=== PATIENT | female | born 1940 | race Two or more races ===

== ENCOUNTER 2017-08-03 14:24 | Inpatient (IN) | payer OTHER ==
[~2017-08-03] VITALS: Ht 180.3 cm; Wt 66.3 kg
[2017-08-03 15:01] LABS: EOSINOPHIL (%) 0.7 % (0-5); EOSINOPHIL COUNT 0.1 K/uL (0-0.3); IMMATURE GRANULOCYTE (%) 0.4 % (0.0-0.7); INSTRUMENT ABS NEUTROPHIL CT 5.1 K/uL; LYMPHOCYTE COUNT 1.4 K/uL (1.0-2.8); MCH 26.3 PG (29.0-34.0); MCHC 31.4 G/DL (30.0-36.0); MCV 83.7 FL (83-99); MEAN PLAT.VOLUME 10.3 uM^3 (9.5-12.4); MONOCYTE (%) 6.6 % (3-12); MONOCYTE COUNT 0.5 K/uL (0-0.8); NEUTROPHIL (%) 72.6 % (45-76); NEUTROPHIL COUNT 5.1 K/uL (1.8-6.4); PLATELET COUNT 166 K/uL (156-360); RBC DIS.WIDTH-CV 13.5 % (11.8-14.6); RBC DIS.WIDTH-SD 41.6 % (39-53); RED BLOOD COUNT 5.14 M/uL (3.80-5.20)
[2017-08-03 15:10] LABS: CHLORIDE 98 mEq/L (99-109); POTASSIUM 4.9 mEq/L (3.7-5.4); SODIUM 137 mEq/L (136-147)
[2017-08-03 15:12] LABS: GLUCOSE 99 mg/dL (70-99)
[2017-08-03 15:13] LABS: ANION GAP 10 MEQ/L (2-14)
[2017-08-03 15:15] LABS: GFR ESTIMATE (CALCULATED) > 59 mL/min/
[2017-08-03 15:16] LABS: UREA NITROGEN (BUN) 17 mg/dL (9-23)
[2017-08-03 15:47] LABS: ADD MIUA? YES; BILIRUBIN NEGATIVE; BLOOD NEGATIVE; COLOR AMBER ((YELLOW)); GLUCOSE (STRIP) NEGATIVE; KETONES 20; LEUKOCYTES NEGATIVE; NITRITE POSITIVE; PROTEIN (STRIP) 30; SPECIFIC GRAVITY 1.023 (1.000-1.030)
[2017-08-03 15:51] LABS: BACTERIA NONE SEEN /HPF; EPITHELIAL CELLS RARE /HPF; HYALINE CASTS 0-5 /LPF; MUCUS TRACE /LPF; RED BLOOD CELLS 0-5 /HPF (0-5); WHITE BLOOD CELLS 15-20 /HPF (0-5)
[2017-08-03] MEDS ORDERED: COLACE100 MG PO (16:55)
[2017-08-03] MEDS ORDERED: LEXAPRO10 MG PO (16:55)
[2017-08-03] MEDS ORDERED: NORVASC2.5 MG PO (16:55)
[2017-08-03] MEDS ORDERED: CELEBREX200 MG PO (16:55)
[2017-08-03] MEDS ORDERED: MIRALAX17 GM PO ×2 (16:56→17:01)
[2017-08-03] MEDS ORDERED: RILUTEK50 MG PO (16:57)
[2017-08-03] MEDS ORDERED: LYRICA50 MG PO (16:57)
[2017-08-03] MEDS ORDERED: OMEPRAZOLE40 M1 PO (16:57)
[2017-08-03] MEDS ORDERED: ALBUTEROL2.5 MG/3 M IH (16:58)
[2017-08-03] MEDS ORDERED: METOCLOPRAMIDE H5 MG PO (16:58)
[2017-08-03] MEDS ORDERED: ATROPINE 1100 DROP/5 SL (16:59)
[2017-08-03] MEDS ORDERED: BENZONATATE100 MG PO (16:59)
[2017-08-03] MEDS ORDERED: ROBITUSSIN AC,T10 ML PO (17:00)
[2017-08-03] MEDS ORDERED: DULCOLAX10 MG PR (17:00)
[2017-08-03] MEDS ORDERED: KLONOPIN0.5 M1 PO (17:00)
[2017-08-03] MEDS ORDERED: PHILLIPS'400 MG/5 M PO (17:00)
[2017-08-03] MEDS ORDERED: TYLENOL WITH C1 EACH PO (17:01)
[2017-08-03] MEDS ORDERED: ZOFRAN4 MG PO (17:01)
[2017-08-03 19:45] VITALS: BP 137/71
[2017-08-03 23:43] VITALS: BP 138/73
[2017-08-04 06:45] LABS: ANION GAP 3 MEQ/L (2-14); CHLORIDE 101 MEQ/L (99-109); GFR ESTIMATE (CALCULATED) > 59 mL/min/; GLUCOSE 101 mg/dL (70-99); POTASSIUM 4.3 MEQ/L (3.7-5.4); SAMPLE HEMOLYSIS CHECK 0; SAMPLE ICTERIC CHECK 0; SAMPLE LIPEMIA CHECK 0; SODIUM 139 MEQ/L (136-147); UREA NITROGEN (BUN) 15 mg/dL (9-23)
[2017-08-04 08:07] VITALS: BP 142/81
[2017-08-04 16:19] VITALS: BP 138/79
[2017-08-04 17:36] LABS: POINT-OF-CARE METER ID UU14174225
[2017-08-05 00:21] VITALS: BP 130/60
[2017-08-05 06:20] LABS: HEMATOCRIT 41.9 % (36.0-46.0); MCHC 29.8 G/DL (30.0-36.0); MCV 87.1 FL (83-99); MEAN PLAT.VOLUME 10.8 uM^3 (9.5-12.4); PLATELET COUNT 165 K/uL (156-360); RBC DIS.WIDTH-CV 13.4 % (11.8-14.6); RBC DIS.WIDTH-SD 42.9 % (39-53); RED BLOOD COUNT 4.81 M/uL (3.80-5.20); WHITE BLOOD COUNT 5.7 K/uL (4.1-10.2)
[2017-08-05 06:43] LABS: ANION GAP 5 MEQ/L (2-14); CHLORIDE 103 MEQ/L (99-109); GFR ESTIMATE (CALCULATED) > 59 mL/min/; GLUCOSE 107 mg/dL (70-99); POTASSIUM 4.2 MEQ/L (3.7-5.4); SAMPLE HEMOLYSIS CHECK 0; SAMPLE ICTERIC CHECK 0; SAMPLE LIPEMIA CHECK 0; SODIUM 144 MEQ/L (136-147); UREA NITROGEN (BUN) 12 mg/dL (9-23)
[2017-08-05 08:00] VITALS: BP 142/71
[2017-08-05 14:06] LABS: METH RESISTANT S AUREUS PCR NEGATIVE (NEGATIVE)
[2017-08-05 14:12] LABS: PROBE CHECK PASS; SPECIMEN PROCESSING CONTROL PASS
[2017-08-05 15:00] VITALS: BP 138/82
[2017-08-05 19:50] VITALS: BP 138/69
[2017-08-05 23:35] VITALS: BP 144/70
[2017-08-06 04:35] VITALS: BP 126/64
[2017-08-06 06:01] LABS: MCH 26.6 PG (29.0-34.0); MCHC 30.5 G/DL (30.0-36.0); MCV 87.2 FL (83-99); MEAN PLAT.VOLUME 10.7 uM^3 (9.5-12.4); PLATELET COUNT 148 K/uL (156-360); RBC DIS.WIDTH-CV 13.4 % (11.8-14.6); RBC DIS.WIDTH-SD 42.9 % (39-53); RED BLOOD COUNT 4.47 M/uL (3.80-5.20); WHITE BLOOD COUNT 4.8 K/uL (4.1-10.2)
[2017-08-06 06:25] LABS: ANION GAP 3 MEQ/L (2-14); CHLORIDE 100 MEQ/L (99-109); GFR ESTIMATE (CALCULATED) > 59 mL/min/; GLUCOSE 98 mg/dL (70-99); SAMPLE HEMOLYSIS CHECK 0; SAMPLE ICTERIC CHECK 0; SAMPLE LIPEMIA CHECK 0; SODIUM 141 MEQ/L (136-147); UREA NITROGEN (BUN) 9 mg/dL (9-23)
[2017-08-06 07:54] VITALS: BP 1352/81
[2017-08-06 12:13] VITALS: BP 152/79
[2017-08-06 19:39] VITALS: BP 138/74
[2017-08-07] VITALS (7 sets, daily range): BP systolic 132–187; BP diastolic 70–84
[2017-08-07 06:45] LABS: ANION GAP 7 MEQ/L (2-14); CHLORIDE 95 MEQ/L (99-109); GFR ESTIMATE (CALCULATED) > 59 mL/min/; GLUCOSE 91 mg/dL (70-99); SAMPLE HEMOLYSIS CHECK 0; SAMPLE ICTERIC CHECK 0; SAMPLE LIPEMIA CHECK 0; SODIUM 141 MEQ/L (136-147); UREA NITROGEN (BUN) 9 mg/dL (9-23)
[2017-08-08 03:37] VITALS: BP 133/71
[2017-08-08 06:04] LABS: MCH 26.6 PG (29.0-34.0); MCHC 31.7 G/DL (30.0-36.0); MCV 83.8 FL (83-99); MEAN PLAT.VOLUME 10.6 uM^3 (9.5-12.4); PLATELET COUNT 166 K/uL (156-360); RBC DIS.WIDTH-CV 13.2 % (11.8-14.6); RBC DIS.WIDTH-SD 40.1 % (39-53); RED BLOOD COUNT 4.89 M/uL (3.80-5.20); WHITE BLOOD COUNT 5.3 K/uL (4.1-10.2)
[2017-08-08 06:30] LABS: ANION GAP 8 MEQ/L (2-14); CHLORIDE 93 MEQ/L (99-109); GFR ESTIMATE (CALCULATED) > 59 mL/min/; GLUCOSE 93 mg/dL (70-99); POTASSIUM 3.9 MEQ/L (3.7-5.4); SAMPLE HEMOLYSIS CHECK 0; SAMPLE ICTERIC CHECK 0; SAMPLE LIPEMIA CHECK 0; SODIUM 140 MEQ/L (136-147); UREA NITROGEN (BUN) 9 mg/dL (9-23)
[2017-08-08 07:01] VITALS: BP 172/81
[2017-08-08 11:11] VITALS: BP 142/87
[2017-08-08] MEDS ORDERED: CEFEPIME-D1 GM/50 ML IV (13:03)
[2017-08-08 15:12] VITALS: BP 138/75
== END 2017-08-08 15:39 | DRG 194 ==
LOC: EME 14:24 → EDOF 16:48 → 5SOUTH 16:48 → EDOF 16:48 → ENRESERV 16:51 → 5SOUTH 19:17
PROVIDERS: Emergency Medicine; Internal Medicine; Physician Assistant Medical
DX: J18.9 Pneumonia, unspecified organism (principal); Y95 Nosocomial condition; N30.00 Acute cystitis without hematuria; B96.20 Unspecified Escherichia coli [E. coli] as the cause of diseases classified elsewhere; G12.21 Amyotrophic lateral sclerosis; N31.9 Neuromuscular dysfunction of bladder, unspecified; R33.9 Retention of urine, unspecified; J98.11 Atelectasis; R09.02 Hypoxemia; G62.9 Polyneuropathy, unspecified; J45.909 Unspecified asthma, uncomplicated; G89.29 Other chronic pain; I10 Essential (primary) hypertension; H81.09 Meniere's disease, unspecified ear; E78.5 Hyperlipidemia, unspecified; K21.9 Gastro-esophageal reflux disease without esophagitis; F32.9 Major depressive disorder, single episode, unspecified; H91.90 Unspecified hearing loss, unspecified ear; F41.9 Anxiety disorder, unspecified; M19.90 Unspecified osteoarthritis, unspecified site; Z66 Do not resuscitate; Z87.11 Personal history of peptic ulcer disease
CPT/HCPCS: 71010; 71250; 74000; 74177; 80048; 81003; 82948; 85025; 85027; 87040; 87077; 87086; 87186; 87641; 92526 GN; 92610 GN; 94660; 94799; 99202; 99281; 99285; G0378; J0456; J0692; J0696; J1650; J3010; J7042; J7050; S0028